=== PATIENT | male | born 1945 | race Caucasian/White ===

== ENCOUNTER → 2016-09-10 | Outpatient (CLI) | payer MEDICARE, OTHER ==
[~2016-09-10] MED LIST: ALDACTONE 25MG25 MG PO; ANTIVERT 25MG T25 MG PO; ASTEPRO205.5 MCG/; BACTROBAN CREAM15 GM EXT; CARBIDOPA-LEVO1 EAC1 PO; CLINDAMYCIN HC300 MG PO; COLACE 100MG C100 MG PO; COREG 3.125M3.125 MG PO; COZAAR25 MG PO; DILTIAZEM 12HR120 MG PO; DULERA 200 MCG8.8 GM INH; FERROUS SULFAT325 M2 PO; KEFLEX500 MG PO; KLONOPIN TAB 00.5 MG PO; LIORESAL TAB 1010 MG PO; MEDROL DOSEPAK 24 MG PO; MIRALAX PACK 171 PKT PO; NEURONTIN 300300 MG PO; NEXIUM40 MG PO; PANTOPRAZOLE SO40 MG PO; PROAIR HFA8.5 GM INH; SINGULAIR10 MG PO; ULTRAM50 MG PO; VITAMIN D1000 UNIT PO; ZYLOPRIM 100 M100 MG PO
== END ==
LOC: KOH-I 10:14
DX: M79.661 Pain in right lower leg (principal); M79.662 Pain in left lower leg
CPT/HCPCS: 93925

== ENCOUNTER 2016-09-29 04:27 | Inpatient (IN) | payer MEDICARE, OTHER ==
[~2016-09-29] VITALS: Ht 167.6 cm; Wt 61.7 kg
[2016-09-29 07:59] LABS: BUN/CREATININE RATIO 19 (0-10); HEMOGLOBIN 9.9 gm/dl (14.0-17.5); RED BLOOD COUNT 3.72 M/UL (4.20-5.50); WHITE BLOOD COUNT 12.4 K/UL (4.5-11.0)
[2016-09-29] MEDS ORDERED: NEURONTIN 300300 MG PO (18:13)
[2016-09-29] MEDS ORDERED: FERROUS SULFAT325 M2 PO (18:14)
[2016-09-29] MEDS ORDERED: SINGULAIR10 MG PO (18:14)
[2016-09-29] MEDS ORDERED: BACTROBAN CREAM15 GM EXT (18:15)
[2016-09-29] MEDS ORDERED: CLINDAMYCIN HC300 MG PO (18:15)
[2016-09-29] MEDS ORDERED: KLONOPIN TAB 00.5 MG PO (18:15)
[2016-09-29] MEDS ORDERED: LIORESAL TAB 1010 MG PO (18:16)
[2016-09-29] MEDS ORDERED: ZYLOPRIM 100 M100 MG PO (18:18)
[2016-09-29] MEDS ORDERED: ASTEPRO205.5 MCG/ (18:20)
[2016-09-29] MEDS ORDERED: DILTIAZEM 12HR120 MG PO (18:21)
[2016-09-29] MEDS ORDERED: KEFLEX500 MG PO (18:22)
[2016-09-29] MEDS ORDERED: ULTRAM50 MG PO (18:22)
[2016-09-29] MEDS ORDERED: COLACE 100MG C100 MG PO (18:23)
[2016-09-29] MEDS ORDERED: NEXIUM40 MG PO (18:24)
[2016-09-29] MEDS ORDERED: COZAAR25 MG PO (18:24)
[2016-09-30 03:50] LABS: HEMOGLOBIN 9.2 gm/dl (14.0-17.5); RED BLOOD COUNT 3.45 M/UL (4.20-5.50)
[2016-09-30 04:07] LABS: BUN/CREATININE RATIO 17 (0-10)
[2016-09-30] MEDS ORDERED: DULERA 200 MCG8.8 GM INH (05:50)
[2016-09-30] MEDS ORDERED: CARBIDOPA-LEVO1 EAC1 PO (11:18)
[2016-09-30] MEDS ORDERED: ALDACTONE 25MG25 MG PO (11:21)
[2016-09-30] MEDS ORDERED: MIRALAX PACK 171 PKT PO (14:12)
[2016-09-30] MEDS ORDERED: PANTOPRAZOLE SO40 MG PO (14:14)
[2016-09-30] MEDS ORDERED: ANTIVERT 25MG T25 MG PO (14:16)
[2016-09-30] MEDS ORDERED: VITAMIN D1000 UNIT PO (14:19)
[2016-09-30] MEDS ORDERED: PROAIR HFA8.5 GM INH (18:18)
[2016-09-30] MEDS ORDERED: ASTEPRO205.5 MCG/ (18:21)
[2016-10-01 05:22] LABS: HEMOGLOBIN 8.2 gm/dl (14.0-17.5); RED BLOOD COUNT 3.04 M/UL (4.20-5.50); WHITE BLOOD COUNT 6.5 K/UL (4.5-11.0)
[2016-10-01 05:33] LABS: BUN/CREATININE RATIO 22 (0-10)
--- NOTE | 2016-10-01 19:38 | NUR ---
PATIENT WITH DECREASE URINARY OUTPUT, DENIES PAIN WHEN BLADDER PALPATED, AND NON TENDER. REPORTED TO AND RECEIVED ORDER.
[2016-10-02 04:29] LABS: HEMOGLOBIN 7.9 gm/dl (14.0-17.5); WHITE BLOOD COUNT 5.8 K/UL (4.5-11.0)
[2016-10-02 04:57] LABS: BUN/CREATININE RATIO 23 (0-10)
[2016-10-02] MEDS ORDERED: COREG 3.125M3.125 MG PO (09:57)
[2016-10-02] MEDS ORDERED: MEDROL DOSEPAK 24 MG PO (09:57)
== END 2016-10-02 09:26 | disposition home or self-care (01) | DRG 607 ==
LOC: ER1 04:27 → ZEROF 12:10 → MED SURG 4 17:12
PROVIDERS: Emergency Medicine; Physician Assistant Medical; ADMIT Internal Medicine
DX: L95.8 Other vasculitis limited to the skin (principal); J45.909 Unspecified asthma, uncomplicated; I10 Essential (primary) hypertension; E87.6 Hypokalemia; D69.2 Other nonthrombocytopenic purpura; T50.4X5A Adverse effect of drugs affecting uric acid metabolism, initial encounter; T50.0X5A Adverse effect of mineralocorticoids and their antagonists, initial encounter; T46.1X5A Adverse effect of calcium-channel blockers, initial encounter; Y92.009 Unspecified place in unspecified non-institutional (private) residence as the place of occurrence of the external cause; G20 Parkinson's disease; M79.672 Pain in left foot; M79.671 Pain in right foot; E83.42 Hypomagnesemia; Z91.81 History of falling; Z88.8 Allergy status to other drugs, medicaments and biological substances; Z88.7 Allergy status to serum and vaccine; Z79.899 Other long term (current) drug therapy; Z79.51 Long term (current) use of inhaled steroids
CPT/HCPCS: 36415; 70450; 72125; 72170; 73030; 80048; 80053; 80202; 81001; 82550; 82553; 83605; 83735; 84132; 84484; 85025; 85027; 85610; 85730; 86039; 86140; 87040; 87086; 93005; 93925; 93970; 94640; 94664; 96361; 96374; 99285; J1650; J3370; J7030; J7040; J7050; J7070

== ENCOUNTER 2016-10-02 17:38 | Emergency (ER) | payer MEDICARE, MEDICAID ==
[2016-10-02 21:18] LABS: HEMOGLOBIN 8.4 gm/dl (14.0-17.5); RED BLOOD COUNT 3.02 M/UL (4.20-5.50)
[2016-10-02 21:44] LABS: BUN/CREATININE RATIO 21 (0-10)
== END 2016-10-03 15:23 | disposition home or self-care (01) ==
LOC: ER1 17:38
PROVIDERS: Family Medicine
DX: D64.9 Anemia, unspecified (principal); I77.6 Arteritis, unspecified; F22 Delusional disorders
CPT/HCPCS: 36415; 71010; 80053; 81001; 82550; 82553; 83874; 84484; 85025; 87086; 93005; 99285

== ENCOUNTER 2021-03-31 14:13 | Inpatient (IN) | payer MEDICARE, OTHER ==
[~2021-03-31] VITALS: Ht 157.5 cm; Wt 62.1 kg
[~2021-03-31 14:13] MED LIST changes: +AZELASTINE137 MCG/0.; +DEXAMETHASONE6 MG PO; +DOXYCYCLINE HY100 M2 PO; +FUROSEMIDE20 MG PO; +KAPVAY0.1 MG PO; +POTASSIUM CHLO10 MEQ PO
[2021-03-31 14:54] LABS: HEMOGLOBIN 15.4 gm/dl (14.0-17.5); WHITE BLOOD COUNT 11.6 K/UL (4.5-11.0)
[2021-03-31 15:16] LABS: BUN/CREATININE RATIO 23 (0-10)
[2021-03-31] MEDS ORDERED: LATANOPROST 0.7.5 ML OU (17:00)
[2021-03-31] MEDS ORDERED: DILTIAZEM 24HR360 MG PO (17:00)
[2021-04-01 07:06] LABS: HEMOGLOBIN 14.4 gm/dl (14.0-17.5); RED BLOOD COUNT 4.76 M/UL (4.20-5.50); WHITE BLOOD COUNT 10.5 K/UL (4.5-11.0)
[2021-04-01 07:31] LABS: BUN/CREATININE RATIO 27 (0-10)
[2021-04-02 04:16] LABS: HEMOGLOBIN 13.3 gm/dl (14.0-17.5); RED BLOOD COUNT 4.4 M/UL (4.20-5.50)
[2021-04-02 04:37] LABS: BUN/CREATININE RATIO 27 (0-10)
[2021-04-03 07:01] LABS: HEMOGLOBIN 13.8 gm/dl (14.0-17.5); RED BLOOD COUNT 4.56 M/UL (4.20-5.50); WHITE BLOOD COUNT 19.6 K/UL (4.5-11.0)
[2021-04-03 07:46] LABS: BUN/CREATININE RATIO 30 (0-10)
[2021-04-04 06:58] LABS: HEMOGLOBIN 13.9 gm/dl (14.0-17.5); RED BLOOD COUNT 4.66 M/UL (4.20-5.50)
[2021-04-04 07:02] LABS: WHITE BLOOD COUNT 14.5 K/UL (4.5-11.0)
[2021-04-04 07:30] LABS: BUN/CREATININE RATIO 30 (0-10)
[2021-04-04] MEDS ORDERED: ULTRAM50 MG PO (12:24)
[2021-04-04] MEDS ORDERED: LIORESAL TAB 1010 MG PO (12:24)
[2021-04-04] MEDS ORDERED: KLONOPIN TAB 00.5 MG PO (12:24)
[2021-04-04] MEDS ORDERED: NEXIUM40 MG PO (12:24)
[2021-04-04] MEDS ORDERED: GABAPENTIN300 MG PO (12:24)
[2021-04-04] MEDS ORDERED: ELIQUIS 5 MG TAB5 MG PO (12:31)
[2021-04-04] MEDS ORDERED: KEFLEX CAP 250250 MG PO (12:31)
== END 2021-04-04 21:10 | DRG 177 ==
LOC: ER1 14:13 → MED SURG 4 16:23 → CDU 16:23 → MED SURG 4 19:05
PROVIDERS: Emergency Medicine; ADMIT Internal Medicine
PROC: 8E0ZXY6 Isolation (ICD-10-PCS; principal; 2021-03-31)
PROC: 3E0333Z Introduction of Anti-inflammatory into Peripheral Vein, Percutaneous Approach (ICD-10-PCS; 2021-03-31)
PROC: B24BZZZ Ultrasonography of Heart with Aorta (ICD-10-PCS; 2021-04-01)
DX: U07.1 COVID-19 (principal); J12.82 Pneumonia due to coronavirus disease 2019; J15.9 Unspecified bacterial pneumonia; J96.01 Acute respiratory failure with hypoxia; I26.99 Other pulmonary embolism without acute cor pulmonale; N17.9 Acute kidney failure, unspecified; J44.0 Chronic obstructive pulmonary disease with (acute) lower respiratory infection; F41.9 Anxiety disorder, unspecified; E78.5 Hyperlipidemia, unspecified; I08.3 Combined rheumatic disorders of mitral, aortic and tricuspid valves; K21.9 Gastro-esophageal reflux disease without esophagitis; I12.9 Hypertensive chronic kidney disease with stage 1 through stage 4 chronic kidney disease, or unspecified chronic kidney disease; N18.9 Chronic kidney disease, unspecified; G20 Parkinson's disease; I27.20 Pulmonary hypertension, unspecified; D72.828 Other elevated white blood cell count; R53.81 Other malaise; T38.0X5A Adverse effect of glucocorticoids and synthetic analogues, initial encounter; Z74.01 Bed confinement status
CPT/HCPCS: ECHO; 36415; 36600; 71045; 78580; 80048; 80053; 80202; 82550; 82553; 82728; 82803; 83605; 83874; 83880; 84484; 85025; 85379; 86140; 87040; 93005; 93306; 94640; 94664; 94760; 97116; 97161; 99285; A9540; J1100; J1335; J2185; J3370; J7030; J7050; J7070; U0002

== ENCOUNTER 2021-06-09 04:42 | Emergency (ER) | payer MEDICARE, OTHER ==
[~2021-06-09 04:42] MED LIST changes: +DILTIAZEM 24HR360 MG PO; +ELIQUIS 5 MG TAB5 MG PO; +GABAPENTIN300 MG PO; +KEFLEX CAP 250250 MG PO; +LATANOPROST 0.7.5 ML OU
== END 2021-06-09 12:06 | disposition home or self-care (01) ==
LOC: ER1 04:42
DX: S41.111A Laceration without foreign body of right upper arm, initial encounter (principal); I12.9 Hypertensive chronic kidney disease with stage 1 through stage 4 chronic kidney disease, or unspecified chronic kidney disease; E11.22 Type 2 diabetes mellitus with diabetic chronic kidney disease; J45.909 Unspecified asthma, uncomplicated; N18.9 Chronic kidney disease, unspecified; W18.11XA Fall from or off toilet without subsequent striking against object, initial encounter; Y92.002 Bathroom of unspecified non-institutional (private) residence as the place of occurrence of the external cause
CPT/HCPCS: 70450; 72125; 72128; 72131; 73030; 73070; 73110; 73130; 81001; 87086; 93005; 99284

== ENCOUNTER 2021-06-25 22:46 | Emergency (ER) | payer MEDICARE, OTHER ==
[2021-06-25] MEDS ORDERED: CIPRODEX OTIC7.5 ML EARLF (23:38)
== END 2021-06-26 00:19 | disposition home or self-care (01) ==
LOC: ER1 22:46
DX: H60.92 Unspecified otitis externa, left ear (principal); I10 Essential (primary) hypertension
CPT/HCPCS: 99283

== ENCOUNTER 2021-08-12 20:33 | Emergency (ER) | payer MEDICARE, OTHER ==
[~2021-08-12 20:33] MED LIST changes: +CIPRODEX OTIC7.5 ML EARLF
[2021-08-13] MEDS ORDERED: Voltaren Gel 1 % TOP (04:26)
== END 2021-08-13 09:30 | disposition home or self-care (01) ==
LOC: ER1 20:33
DX: S20.211A Contusion of right front wall of thorax, initial encounter (principal); I10 Essential (primary) hypertension; J44.9 Chronic obstructive pulmonary disease, unspecified; K21.9 Gastro-esophageal reflux disease without esophagitis; Z86.69 Personal history of other diseases of the nervous system and sense organs; W01.0XXA Fall on same level from slipping, tripping and stumbling without subsequent striking against object, initial encounter; Y92.009 Unspecified place in unspecified non-institutional (private) residence as the place of occurrence of the external cause
CPT/HCPCS: 71111; 73030; 73060; 73552; 73590; 99283

== ENCOUNTER 2021-09-16 15:22 | Inpatient (IN) | payer MEDICARE, OTHER ==
[~2021-09-16] VITALS: Ht 157.5 cm; Wt 54.0 kg
[~2021-09-16 15:22] MED LIST changes: -CARBIDOPA-LEVO1 EAC1 PO; +CARBIDOPA-LEVO1 EAC6 PO; +Voltaren Gel 1 % TOP
[2021-09-16 16:59] LABS: RED BLOOD COUNT 5.26 M/UL (4.20-5.50); WHITE BLOOD COUNT 11.2 K/UL (4.5-11.0)
[2021-09-16 17:25] LABS: BUN/CREATININE RATIO 19 (0-10)
[2021-09-17 05:40] LABS: HEMOGLOBIN 15.2 gm/dl (14.0-17.5); RED BLOOD COUNT 5.06 M/UL (4.20-5.50); WHITE BLOOD COUNT 10.5 K/UL (4.5-11.0)
--- NOTE | 2021-09-17 13:24 | NUR ---
645mL per bladder scanner. 16fr de [place] rosa catheter inserted, sterile technique. Pt tolerated procedure well. 800mL of yellow urine drained.
[2021-09-18 04:00] LABS: HEMOGLOBIN 14.4 gm/dl (14.0-17.5); RED BLOOD COUNT 4.77 M/UL (4.20-5.50); WHITE BLOOD COUNT 13.1 K/UL (4.5-11.0)
[2021-09-18] MEDS ORDERED: BACLOFEN10 MG PO (09:57)
[2021-09-18] MEDS ORDERED: ESOMEPRAZOLE MA40 MG PO (09:58)
[2021-09-18] MEDS ORDERED: KLONOPIN0.5 MG PO (09:58)
[2021-09-18] MEDS ORDERED: ASPIRIN EC81 MG PO (10:01)
[2021-09-18] MEDS ORDERED: GABAPENTIN300 MG PO (10:01)
[2021-09-18] MEDS ORDERED: FLONASE ALLER15.8 ML (10:01)
[2021-09-18] MEDS ORDERED: TRAMADOL HCL50 MG PO (10:01)
[2021-09-19 03:25] LABS: HEMOGLOBIN 14.4 gm/dl (14.0-17.5); RED BLOOD COUNT 4.83 M/UL (4.20-5.50)
[2021-09-19 03:53] LABS: WHITE BLOOD COUNT 18.1 K/UL (4.5-11.0)
[2021-09-19] MEDS ORDERED: SENNA-DOCUSATE1 EACH PO (12:12)
[2021-09-19] MEDS ORDERED: MIRALAX17 GM PO (12:12)
[2021-09-20 03:28] LABS: HEMOGLOBIN 15.2 gm/dl (14.0-17.5); RED BLOOD COUNT 5.01 M/UL (4.20-5.50); WHITE BLOOD COUNT 15.9 K/UL (4.5-11.0)
[2021-09-20] MEDS ORDERED: ELIQUIS 5 MG TAB5 MG PO (12:26)
== END 2021-09-20 14:42 | disposition home or self-care (01) | DRG 683 ==
LOC: ER1 15:22 → CDU 23:04 → M/S 23:04
PROVIDERS: Internal Medicine; Internal Medicine Nephrology; Physician Assistant; ADMIT Internal Medicine
DX: N17.9 Acute kidney failure, unspecified (principal); I13.0 Hypertensive heart and chronic kidney disease with heart failure and stage 1 through stage 4 chronic kidney disease, or unspecified chronic kidney disease; N18.30 Chronic kidney disease, stage 3 unspecified; J44.9 Chronic obstructive pulmonary disease, unspecified; E11.22 Type 2 diabetes mellitus with diabetic chronic kidney disease; G20 Parkinson's disease; F41.9 Anxiety disorder, unspecified; E86.0 Dehydration; K21.9 Gastro-esophageal reflux disease without esophagitis; I50.9 Heart failure, unspecified; K59.00 Constipation, unspecified; Z66 Do not resuscitate; I71.4 Abdominal aortic aneurysm, without rupture; I72.3 Aneurysm of iliac artery; E78.5 Hyperlipidemia, unspecified; N40.0 Benign prostatic hyperplasia without lower urinary tract symptoms; I25.10 Atherosclerotic heart disease of native coronary artery without angina pectoris; Z95.5 Presence of coronary angioplasty implant and graft; Z86.16 Personal history of COVID-19; Z98.890 Other specified postprocedural states; Z90.89 Acquired absence of other organs; Z79.82 Long term (current) use of aspirin; Z79.899 Other long term (current) drug therapy
CPT/HCPCS: 36415; 71045; 80048; 80053; 81001; 82550; 82553; 82570; 82607; 82962; 83690; 83735; 83880; 84132; 84133; 84156; 84300; 84439; 84443; 84484; 85025; 93005; 94640; 94664; 94760; 96374; 99285; G0378; J0360; J2405; J3475; J7030; P9047

== ENCOUNTER 2021-11-28 20:30 | Observation (INO) | payer MEDICARE, OTHER ==
[~2021-11-28] VITALS: Ht 157.5 cm; Wt 59.0 kg
[~2021-11-28 20:30] MED LIST changes: +ASPIRIN EC81 MG PO; +BACLOFEN10 MG PO; +ESOMEPRAZOLE MA40 MG PO; +FLONASE ALLER15.8 ML; +KLONOPIN0.5 MG PO; +MIRALAX17 GM PO; +SENNA-DOCUSATE1 EACH PO; +TRAMADOL HCL50 MG PO
[2021-11-28 22:02] LABS: HEMOGLOBIN 15.5 gm/dl (14.0-17.5); RED BLOOD COUNT 5.06 M/UL (4.20-5.50); WHITE BLOOD COUNT 12.9 K/UL (4.5-11.0)
[2021-11-28 22:17] LABS: BUN/CREATININE RATIO 18 (0-10)
[2021-11-29] MEDS ORDERED: DOCUSATE SODIU100 MG PO (11:06)
[2021-11-30 02:47] LABS: HEMOGLOBIN 13.7 gm/dl (14.0-17.5); RED BLOOD COUNT 4.58 M/UL (4.20-5.50)
[2021-11-30 03:09] LABS: BUN/CREATININE RATIO 21 (0-10)
[2021-11-30] MEDS ORDERED: ATORVASTATIN CA20 MG PO (10:42)
--- NOTE | 2021-11-30 16:09 | NUR ---
TELE CALLED TO NOTIFY THAT THE PT HAS SVT INTO THE 170'S. DR. GOMEZ AWARE THAT THE PT GOES INTO SVT WHEN HE IS UP FROM THE BED. WILL CONTINUE TO MONITOR PT AND NOTIFY DR. GOMEZ OF ANY CHANGES.
--- NOTE | 2021-11-30 18:31 | NUR ---
[facility] HAS BEEN CALLED SEVERAL TIMES WITH NO ANSWER FOR THE PT TO BE DISCHARGED HOME. MESSAGES HAVE BEEN LEFT BY MYSELF AND EMIR. PROVIDED THE PHONE NUMBER FOR [facility] TO CONTINUE TO CALL [facility] FOR POSSIBLE TRANSPORT HOME. PT RESTING IN BED. ASKING IF TRANSPORT HAS BEEN CALLED. WILL CONTINUE TO MONITOR PT WHILE WE WAIT FOR POSSIBLE TRANSPORT HOME AND DISCHARGE FROM THE HOSPITAL.
== END 2021-11-30 22:46 | disposition home health service (06) ==
LOC: ER1 20:30 → M/S 11-29 01:34 → CDU 11-29 01:34 → M/S 11-29 03:08
PROVIDERS: Physician Assistant; ADMIT Internal Medicine
DX: N17.9 Acute kidney failure, unspecified (principal); G20 Parkinson's disease; E11.22 Type 2 diabetes mellitus with diabetic chronic kidney disease; I12.9 Hypertensive chronic kidney disease with stage 1 through stage 4 chronic kidney disease, or unspecified chronic kidney disease; N18.30 Chronic kidney disease, stage 3 unspecified; I25.10 Atherosclerotic heart disease of native coronary artery without angina pectoris
CPT/HCPCS: 36415; 70450; 71045; 72125; 72128; 72131; 72192; 80048; 80053; 81001; 82550; 82553; 82570; 84300; 84484; 85025; 89050; 93005; 94640; 94664; 94760; 97116; 97162; 97166; 97530; 99285; G0378

== ENCOUNTER 2021-12-01 08:19 | Observation (INO) | payer MEDICARE, OTHER ==
[~2021-12-01] VITALS: Ht 157 cm; Wt 63.5 kg
[~2021-12-01 08:19] MED LIST changes: +ATORVASTATIN CA20 MG PO; +DOCUSATE SODIU100 MG PO
[2021-12-01 09:09] LABS: HEMOGLOBIN 16.4 gm/dl (14.0-17.5); RED BLOOD COUNT 5.4 M/UL (4.20-5.50); WHITE BLOOD COUNT 15.1 K/UL (4.5-11.0)
[2021-12-01 09:26] LABS: BUN/CREATININE RATIO 22 (0-10)
[2021-12-02 07:43] LABS: RED BLOOD COUNT 4.93 M/UL (4.20-5.50)
[2021-12-02 07:56] LABS: BUN/CREATININE RATIO 19 (0-10)
[2021-12-02 07:57] LABS: HEMOGLOBIN 14.4 gm/dl (14.0-17.5); WHITE BLOOD COUNT 10.8 K/UL (4.5-11.0)
--- NOTE | 2021-12-02 13:08 | NUR ---
PT CALLED ME TO HIS ROOM , HE SAID HE WAS MAD BECAUSE IF I HADN'T BEEN TALKING TO THE OTHER NURSE I WOULD HAVE HAD THE TIME TO LET HIS SISTER KNOW THAT DR HENDERSON IS RECOMMENDING REHAB. I HAD SPOKE TO HIS SITER EARLY THIS MORNING BUT I DID NOT SHARE ANYTHING WITH HER BECAUSE I DID NOT HAVE AN UPDATED PLAN AT THE TIME AND IT WAS MUCH LATER DR BREWSTER VISITED.
--- NOTE | 2021-12-02 18:17 | NUR ---
PT HAS BEEN IN THE CHAIR AFTER AMBULATING TOLERATED WELL. HE HAS HIS CALL FRANCOIS AND PHONE IN [place].
[2021-12-03 06:30] LABS: HEMOGLOBIN 14.3 gm/dl (14.0-17.5); RED BLOOD COUNT 4.64 M/UL (4.20-5.50); WHITE BLOOD COUNT 10.4 K/UL (4.5-11.0)
[2021-12-03 07:10] LABS: BUN/CREATININE RATIO 22 (0-10)
[2021-12-04 06:52] LABS: RED BLOOD COUNT 4.33 M/UL (4.20-5.50); WHITE BLOOD COUNT 11.6 K/UL (4.5-11.0)
[2021-12-04 07:07] LABS: BUN/CREATININE RATIO 27 (0-10)
[2021-12-05] MEDS ORDERED: TRAMADOL HCL50 MG PO (10:40)
[2021-12-05] MEDS ORDERED: KLONOPIN0.5 MG PO (10:40)
[2021-12-05] MEDS ORDERED: GABAPENTIN300 MG PO (10:40)
== END 2021-12-05 14:25 ==
LOC: ER1 08:19 → CDU 18:06 → MED SURG 4 18:06
PROVIDERS: Emergency Medicine; ADMIT Internal Medicine
DX: R53.1 Weakness (principal); G20 Parkinson's disease; E11.9 Type 2 diabetes mellitus without complications; I16.0 Hypertensive urgency; I10 Essential (primary) hypertension; F41.9 Anxiety disorder, unspecified; I25.10 Atherosclerotic heart disease of native coronary artery without angina pectoris; Z79.01 Long term (current) use of anticoagulants; Z79.82 Long term (current) use of aspirin; Z79.899 Other long term (current) drug therapy; Z86.711 Personal history of pulmonary embolism; Z88.7 Allergy status to serum and vaccine; Z88.8 Allergy status to other drugs, medicaments and biological substances
CPT/HCPCS: 71045; 80048; 80053; 81001; 82962; 83036; 83605; 83735; 84100; 85025; 87040; 87086; 93005; 94640; 94664; 94760; 96374; 96375; 97116; 97116-GP-CQ; 97161; 97166; 97530; 97530-GP-CQ; 99285; G0378; J0696; J3475